=== PATIENT | female | born 1980 | race Caucasian/White ===

== ENCOUNTER → 2021-01-05 01:11 | Outpatient (CLI) | payer OTHER, SELFPAY ==
[2021-01-05 19:43] LABS: SARS-CoV-2 RNA PCR Negative
== END ==
PROVIDERS: PCP Internal Medicine Gastroenterology; Visit Provider Internal Medicine Gastroenterology
DX: Z01.812 Encounter for preprocedural laboratory examination (principal); Z20.822 Contact with and (suspected) exposure to COVID-19
CPT/HCPCS: C9803; U0003; U0005

== ENCOUNTER 2021-01-09 00:26 | Day surgery (SDC) | payer OTHER, SELFPAY ==
[2021-01-01 13:14] VITALS: BMI 25.4
[2021-01-09 09:43] VITALS: BP 131/100; PULSE 92; RESP 20; TEMP 36.6; O2SAT 100
[2021-01-09] MEDS: LACTATED RINGERS 1,000 ML 150 ML IV CONT (09:58)
--- NOTE | 2021-01-09 11:06 | WPDANESEPPF ---
Anes - Initial Pre Proc Eval Procedure: Operation Date: 01/09/21 11:30 Proposed Procedures p Esophagogastroduodenoscopy & Colonoscopy - Christos Carrillo DO Date/Time: 01/09/21 11:06 Surgeon: Christos Carrillo DO Pre Op Diagnosis: GERD, RUQ abd pain, diverticulosis, RLQ abd pain Patient Data Age: 40 Gender: F Height: 5 ft 2 in Weight: 61.5 kg Last Vital Signs Temp 97.8 F 01/09/21 09:43 Pulse 92 01/09/21 09:43 Resp 20 01/09/21 09:43 BP 131/100 H 01/09/21 09:43 Pulse Ox 100 01/09/21 09:43 Allergies Allergy/AdvReac Type Severity Reaction Status Date / Time No Known Allergies Allergy Verified 01/09/21 09:42 Home Medications Medication Instructions Recorded Confirmed Type ekudtobmhc-mrqrtuhcqnecf-mpuw 1 tablet PO PRN 01/01/21 01/01/21 History [Esgic] multivitamin with folic acid 1 tablet PO DAILY 01/01/21 01/01/21 History [Tab-A-Brittany] omeprazole 20 mg PO BID 01/01/21 01/01/21 History Patient hx anesthesia problems: none Family hx anesthesia problems: none PMFSH Past Medical History Medical History (Updated 01/09/21 @ 11:02 by Jacek Sheppard MD) GERD (gastroesophageal reflux disease) Migraine Social History Social History Smoking status: Current every day smoker Substance use type: marijuana Living arrangements: with family Gender identity (if verbalized by the patient): Female Sexual Orientation (if Verbalized by the Patient): Straight or Heterosexual Spiritual care concerns: No Anes - Eval Final PreProcedure Day of Procedure 01/09/21 11:06 Patient weight: normal Heart: regular rate and rhythm Lungs: clear to auscultation Airway: Mallampati scale class II Neurological: alert and oriented Last oral intake: >/= 8 hours ASA classification: II Emergent: no Anesthetic plan: proceed Anesthesia type and monitoring: general GIVS and standard monitoring Informed Consent: The patient's anesthetic plan and its attendant risks and benefits were discussed with the patient/family/POA. Questions were solicited and answers provided to the satisfaction of the patient/family/POA.
[2021-01-09] MEDS: BENZOCAINE (*SP) 60 ML SPRAY CAN (HURRICAINE) 1 SPRAY MUCOUS MEM (12:04)
--- NOTE | 2021-01-09 12:04 | WPDGICN ---
GI Consult Note Consult date/time: 01/09/21 12:04 HPI: Reason for visit EGD and colonoscopy. This very pleasant lady seen in consultation at request of primary physician. Impression: GERD. The patient has a history of right upper quadrant abdominal pain that radiates to the back. Hepatobiliary scan is negative. Evaluate for underlying peptic ulcer disease. Alternating constipation and diarrhea. She does have episodes of rectal bleeding. Evaluate for underlying inflammatory neoplastic disease. Underlying IBS is certainly a consideration. Recommendation: EGD and colonoscopy. History: This very pleasant lady has a history reflux disease. She has been on the omeprazole for years. She was having breakthrough symptoms. The omeprazole as been increased up b.i.d.. She does have alternating constipation diarrhea episodes of diarrhea. She has been having right upper quadrant abdominal pain. She also has right lower quadrant abdominal pain. She is here for EGD and colonoscopy. Physical examination: General: very pleasant patient in no acute distress. HEENT: Head was normocephalic sclerae is clear mouth without masses neck was supple. Heart: Rate rhythm regular without S3 or S4. Lungs: CTA. Abdomen: Soft with no guarding or rigidity. Bowel sounds were active. Neurologic: Cranial nerves 2 through 12 intact. No focal defects. No clonus. Musculoskeletal system: Revealed no joint tenderness or swelling no muscle atrophy. Extremities: Reveal no significant edema. Skin: Warm and dry with normal turgor. Mental status: intact. Patient is alert and oriented. Review of Systems Review of Systems: All systems reviewed & are unremarkable except as noted in HPI and below PMFSH Past Medical History Medical History (Updated 01/09/21 @ 11:02 by Jacek Sheppard MD) GERD (gastroesophageal reflux disease) Migraine Social History Social History Smoking status: Current every day smoker Substance use type: marijuana Living arrangements: with family Gender identity (if verbalized by the patient): Female Sexual Orientation (if Verbalized by the Patient): Straight or Heterosexual Spiritual care concerns: No Meds Home Medications and Allergies Home Medications Medication Instructions Recorded Confirmed Type kdguyntktg-rmikjjpelwsmf-ckqb 1 tablet PO PRN 01/01/21 01/01/21 History [Esgic] multivitamin with folic acid 1 tablet PO DAILY 01/01/21 01/01/21 History [Tab-A-Brittany] omeprazole 20 mg PO BID 01/01/21 01/01/21 History Allergies Allergy/AdvReac Type Severity Reaction Status Date / Time No Known Allergies Allergy Verified 01/09/21 09:42 Vital Signs Vital Signs - 24 hr 01/09/21 09:43 Temperature 36.6 C Pulse Rate 92 Respiratory Rate 20 Blood Pressure 131/100 H Pulse Oximetry 100
[2021-01-09 12:37] VITALS: BP 130/89; PULSE 88; RESP 27; O2SAT 100
[2021-01-09 12:47] VITALS: BP 133/84; PULSE 84; RESP 23; O2SAT 100
[2021-01-09 12:55] VITALS: BP 139/77; O2SAT 100
== END 2021-01-09 13:20 | disposition home or self-care (01) ==
PROVIDERS: PCP Internal Medicine Gastroenterology; Visit Provider Internal Medicine Gastroenterology
PROC: 0DJ08ZZ Inspection of Upper Intestinal Tract, Via Natural or Artificial Opening Endoscopic (ICD-10-PCS; CPT 43235; principal; 2021-01-09 11:30)
DX: K52.9 Noninfective gastroenteritis and colitis, unspecified (principal); K57.30 Diverticulosis of large intestine without perforation or abscess without bleeding; K64.8 Other hemorrhoids; K21.9 Gastro-esophageal reflux disease without esophagitis; F12.90 Cannabis use, unspecified, uncomplicated
CPT/HCPCS: 45380; 87081; 88305; J2704; J7120